=== PATIENT | female | born 1975 | race Caucasian/White ===

== ENCOUNTER 2016-12-09 16:26 | Emergency (ER) | payer SELFPAY ==
[2016-12-09 16:49] VITALS: TEMP 97
--- NOTE | 2016-12-09 16:53 | ED.PDOC ---
History of Present Illness - General Chief Complaint: GI Problem Stated Complaint: NAUSEA X3 WEEKS Time Seen by Provider: 12/09/16 16:36 Information Source: patient, RN notes reviewed, Vital Signs reviewed Exam Limitations: no limitations - History of Present Illness Initial Comments: Patient comes in with c/o nausea for 3 weeks. She has taken Zofran, Pepto, Zantac without improvement. No abdominal pain. She had a bowel movement of 10/3 which was hard so she has been taking Miralax for the past 3 days but has not had a bowel movement since. Abdominal Pain Onset Location: other - No pain Timing/Duration: constant - X 3 weeks Improving Factors: nothing Worsening Factors: nothing Associated Symptoms: nausea/vomiting Review of Systems - Review of Systems Constitutional: States: no symptoms reported Respiratory: States: no symptoms reported Cardiology: States: no symptoms reported, other - She does have hx of an irregular heart rhythm - has biventricular ICD in place. Denies: chest pain Gastrointestinal/Abdominal: States: see HPI, constipation, nausea. Denies: abdominal pain, diarrhea, vomiting Genitourinary: States: no symptoms reported - Denies possibility of - had Tubal Musculoskeletal: States: no symptoms reported Skin: States: no symptoms reported All other Systems: No Change from Baseline Family Medical History - Family History Mother Family History: Unknown Physical Exam - Physical Exam General Appearance: Alert, Comfortable, No apparent distress, Well Developed, Well Groomed, Well Hydrated, Well Nourished Neck: supple, normal inspection Respiratory: lungs clear, normal breath sounds, no respiratory distress, no accessory muscle use Cardiovascular/Chest: regular rate, rhythm, no gallop, no murmur Gastrointestinal/Abdominal: normal bowel sounds, non tender, soft, no organomegaly, no pulsatile mass Extremity: normal range of motion, normal inspection Neurologic: alert, normal mood/affect, oriented x 3 Skin Exam: normal color, warm/dry Progress - Progress Progress: 12/09/16 18:20 Will give NS bolus and Lactulose for constipation. 12/09/16 20:14 No response after 2L NS bolus and 2 doses of Lactulose 30ml PO. Will now attempt a soap suds enema. 12/09/16 21:33 Patient has had 3 bowel movements. The first was hard but is becoming softer. no further nausea. 12/09/16 21:45 She is continuing to have bowel movements. Feeling much better. Would like to go home - Results/Orders Results/Orders: Laboratory Tests 12/09/16 12/09/16 12/09/16 16:58 16:58 16:58 WBC 4.9 RBC 4.28 Hgb 12.6 Hct 37.2 MCV 87.1 MCH 29.5 MCHC 33.9 RDW 14.8 H Plt Count 199 MPV 9.7 Absolute Neuts (auto) 3.10 Absolute Lymphs (auto) 1.20 Absolute Monos (auto) 0.50 Absolute Eos (auto) 0.00 Absolute Basos (auto) 0.00 Neutrophils % 64.2 Lymphocytes % 24.5 Monocytes % 11.0 H Eosinophils % 0.0 L Basophils % 0.3 Sodium 135 Potassium 4.0 Chloride 103 Carbon Dioxide 26 Anion Gap 10.0 L BUN 8 Creatinine 0.64 BUN/Creatinine Ratio 12.5 Random Glucose 113 H Serum Osmolality 269.2 L Calcium 8.5 Total Bilirubin 0.8 AST 27 ALT 20 Alkaline Phosphatase 50 Serum Total Protein 7.4 Albumin 3.8 Globulin 3.6 H Albumin/Globulin Ratio 1.1 Amylase 43 Lipase 23 Urine Color Urine Appearance Urine pH Ur Specific [place] Urine Protein Urine Glucose (UA) Urine Ketones Urine Blood Urine Nitrite Urine Bilirubin Urine Urobilinogen Ur Leukocyte Esterase Urine RBC Urine WBC Ur Epithelial Cells Urine Bacteria Urine HCG, Qual Negative 12/09/16 16:58 WBC RBC Hgb Hct MCV MCH MCHC RDW Plt Count MPV Absolute Neuts (auto) Absolute Lymphs (auto) Absolute Monos (auto) Absolute Eos (auto) Absolute Basos (auto) Neutrophils % Lymphocytes % Monocytes % Eosinophils % Basophils % Sodium Potassium Chloride Carbon Dioxide Anion Gap BUN Creatinine BUN/Creatinine Ratio Random Glucose Serum Osmolality Calcium Total Bilirubin AST ALT Alkaline Phosphatase Serum Total Protein Albumin Globulin Albumin/Globulin Ratio Amylase Lipase Urine Color Yellow Urine Appearance Clear Urine pH 6.5 Ur Specific [place] 1.025 Urine Protein Negative Urine Glucose (UA) Negative Urine Ketones Negative Urine Blood Negative Urine Nitrite Negative Urine Bilirubin Negative Urine Urobilinogen 0.2 Ur Leukocyte Esterase Negative Urine RBC 0 Urine WBC 0 Ur Epithelial Cells 1-3 Urine Bacteria 0 Urine HCG, Qual - EKG/XRAY/CT Comments: Electronic ventricular pacemaker XRAY: abdomen - Stool throughout the colon, no acute process per Radiologist Departure - Departure Clinical Impression: Nausea alone Constipation Qualifiers: Constipation type: slow transit constipation Qualified Code(s): K59.01 - Slow transit constipation Time of Disposition: 21:46 Disposition: Discharge to Home or Self Care Condition: Fair Departure Forms: ED Discharge - Pt. Copy, Patient Portal Self Enrollment Instructions: DI for Constipation Diet: resume usual diet Activity: increase activity as tolerated Home Medications: Ambulatory Orders Carvedilol [Coreg] 3.125 mg PO BID 12/09/16 Lisinopril 20 mg PO DAILY 12/09/16 amLODIPine BESYLATE [Norvasc] 5 mg PO BEDTIME 12/09/16
--- NOTE | 2016-12-09 17:21 | RAD ---
Examination: XR ABDOMEN 2 VIEWS SUPINE ERECT dated 12/09/2016 4:46 PM CDT History: nausea/constipation Comparison: None Technique: Frontal views of the chest, abdomen, and pelvis. FINDINGS: The lungs are clear. No pneumothorax or pleural effusion. Elevated right hemidiaphragm. Left cardiac AICD. Cardiac silhouette is within normal limits. No free air. Stool seen throughout the colon with a general paucity of bowel gas elsewhere. A small calcification projects over the right lower pelvis and may be a phlebolith or a bladder stone. Otherwise no suspicious calcifications. IMPRESSION: Small phlebolith or bladder stone within the right hemipelvis. Otherwise no acute findings. Electronically signed by: Tyrell Ortiz MD 12/09/2016 5:20 PM CDT
[2016-12-09] MEDS ORDERED: LACTULOSE SYRUP 20 GM/30 ML UD PO ONE ×2 (17:26→19:05)
[2016-12-09] MEDS ORDERED: SODIUM CHLORIDE 0.9% 1000ML 1,000 ML IVS ONE ×2 (17:26→19:05)
[2016-12-09] MEDS ORDERED: LACTULOSE SYRUP 20 GM/30 ML UD ONE (19:04)
[2016-12-09 19:05] VITALS: O2SAT 99
[2016-12-09 21:24] VITALS: BP 157/101
== END 2016-12-09 21:59 | disposition home or self-care (01) ==
LOC: ER 16:26
DX: K59.01 Slow transit constipation (principal); R11.0 Nausea; Z95.0 Presence of cardiac pacemaker
CPT/HCPCS: 36415; 74020; 80053; 81001; 81025; 82150; 83690; 85025; 93005; J7030

== ENCOUNTER 2017-01-05 15:34 | Emergency (ER) | payer SELFPAY ==
[2017-01-05 15:53] VITALS: TEMP 97.6; O2SAT 100
[2017-01-05] MEDS ORDERED: ASPIRIN (CHEWABLE) 81 MG TAB PO ONE (15:53)
--- NOTE | 2017-01-05 15:56 | ED.PDOC ---
History of Present Illness - General Chief Complaint: Chest Pain/NV Stated Complaint: chest pain ,sob Time Seen by Provider: 01/05/17 15:40 Source: patient, RN notes reviewed, Vital Signs reviewed Exam Limitations: no limitations - History of Present Illness Initial Comments: Patient comes in with c/o chest pain and SOB that started around 08:00 this morning. Reports she normally has SOB in the morning that usually resolves but it has not today and the chest pain is new. The pain is substernal and varies from an ache to heaviness but never goes away. + mild nausea. Radiated to R jaw and R arm. She use to have chest pain prior to her getting her biventricular ICD pacemaker. Her L lead is fractured but she saw her EP doctor in December and not going to fix it at this time. Timing/Duration: 7-24 hours Severity/Quality: mild, aching, other - Heavy Location: substernal Chest Pain Radiation: jaw - Right, arms - Right Activities at Onset: other - Had just gotten up Prior Chest Pain/Cardiac Workup: echocardiography - last month - EF 55%, other - Biventricular ICD pacemaker Improving Factors: nothing Worsening Factors: nothing Nitro Today/Relief: 0.4 mg x 1, provided by ED Aspirin Treatment Today: 81 mg x 4, provided by ED Associated Symptoms: nausea/vomiting Allergies/Adverse Reactions: Allergies Beta Adrenergic Blockers Allergy (Verified 01/05/17 15:53) Sulfa Antibiotics Allergy (Verified 12/09/16 16:49) Home Medications: Ambulatory Orders Carvedilol [Coreg] 3.125 mg PO BID 12/09/16 Lisinopril 20 mg PO DAILY 12/09/16 amLODIPine BESYLATE [Norvasc] 5 mg PO BEDTIME 12/09/16 Nitroglycerin 0.4 mg Tab [Nitrostat] 1 ea SL Q5MIN PRN #1 bttl 01/05/17 Tramadol HCl [Ultram] 50 mg PO PRN 01/05/17 Review of Systems - Review of Systems Constitutional: States: no symptoms reported Respiratory: States: see HPI, short of breath. Denies: cough Cardiology: States: see HPI, chest pain. Denies: palpitations, syncope Gastrointestinal/Abdominal: States: nausea. Denies: abdominal pain, vomiting Musculoskeletal: States: no symptoms reported Skin: States: no symptoms reported Neurological: States: no symptoms reported All other Systems: No Change from Baseline Past Medical History (General) - Patient Medical History Hx Cardiac Disorders: Yes - Cardiomyopathy Hx Congestive Heart Failure: Yes Hx Pacemaker: Yes - CPVT Hx Hypertension: Yes Surgical History: pacemaker - Vaccination History Hx Influenza Vaccination: No - Social History Hx Tobacco Use: No - Female History Patient is a Female of Child Bearing Age (10 -59 yrs old): Yes Family Medical History - Family History Mother Family History: Unknown Physical Exam - Physical Exam General Appearance: Alert, Comfortable, No apparent distress, Well Developed, Well Groomed, Well Hydrated, Well Nourished Neck: non-tender, full range of motion, supple, normal inspection Respiratory: lungs clear, normal breath sounds, no respiratory distress, no accessory muscle use Cardiovascular/Chest: regular rate, rhythm - with occasional PVC's, no edema, no gallop, no JVD, no murmur Peripheral Pulses: radial,right: 2+, radial,left: 2+, dorsalis pedis,right: 2+, dorsalis pedis,left: 2+ Extremity: non-tender, normal inspection, no pedal edema Neurologic: alert, normal mood/affect, oriented x 3 Skin Exam: normal color, warm/dry Comments: Vital Signs 01/05/17 15:48 Temperature 97.6 F Pulse Rate [ 80 Left Brachial] Respiratory 20 Rate Blood Pressure 183/101 [Left Arm] O2 Sat by Pulse 100 Oximetry Progress - Progress Progress: 01/05/17 16:18 CP started @ 6/10, after 1st SLNTG pain is 4/10 & BP improved ~ 149/102. Will give a second SLNTG 01/05/17 16:43 Chest pain resolved after 2nd SLNTG. BP 151/102. Gave Tylenol 1gm PO for PATINO 01/05/17 19:47 Patient has remained pain free. 2 sets of cardiac enzymes are normal. 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 - Results/Orders Results/Orders: Laboratory Tests 01/05/17 01/05/17 01/05/17 16:16 16:16 16:16 WBC 4.3 L RBC 4.06 L Hgb 11.7 L Hct 35.1 L MCV 86.6 MCH 28.8 MCHC 33.3 RDW 13.6 Plt Count 188 MPV 9.7 Absolute Neuts (auto) 2.80 Absolute Lymphs (auto) 1.00 Absolute Monos (auto) 0.40 Absolute Eos (auto) 0.00 Absolute Basos (auto) 0.00 Neutrophils % 65.8 Lymphocytes % 23.6 Monocytes % 10.2 H Eosinophils % 0.1 L Basophils % 0.3 D-Dimer, Quantitative < 230 Sodium 134 L Potassium 3.6 Chloride 106 Carbon Dioxide 21 Anion Gap 10.6 L BUN 12 Creatinine 0.89 BUN/Creatinine Ratio 13.5 Random Glucose 88 Serum Osmolality 267.4 L Calcium 9.1 Total Bilirubin 0.5 AST 27 ALT 16 Alkaline Phosphatase 47 Creatine Kinase 62 CK-MB (CK-2) 1.6 CK-MB (CK-2) % Not Reportable Troponin I < 0.02 Serum Total Protein 7.2 Albumin 3.9 Globulin 3.3 Albumin/Globulin Ratio 1.2 01/05/17 19:15 WBC RBC Hgb Hct MCV MCH MCHC RDW Plt Count MPV Absolute Neuts (auto) Absolute Lymphs (auto) Absolute Monos (auto) Absolute Eos (auto) Absolute Basos (auto) Neutrophils % Lymphocytes % Monocytes % Eosinophils % Basophils % D-Dimer, Quantitative Sodium Potassium Chloride Carbon Dioxide Anion Gap BUN Creatinine BUN/Creatinine Ratio Random Glucose Serum Osmolality Calcium Total Bilirubin AST ALT Alkaline Phosphatase Creatine Kinase 52 CK-MB (CK-2) 1.4 CK-MB (CK-2) % Not Reportable Troponin I < 0.02 Serum Total Protein Albumin Globulin Albumin/Globulin Ratio - EKG/XRAY/CT EKG: Unchanged from - 12/09/16 Comments: Electronically paced with frequent PVC's XRAY: chest - No acute findings per Radiologist Departure - Departure Clinical Impression: Shortness of breath Chest pain Qualifiers: Chest pain type: unspecified Qualified Code(s): R07.9 - Chest pain, unspecified Time of Disposition: 19:48 Disposition: Discharge to Home or Self Care Condition: Good Departure Forms: ED Discharge - Pt. Copy, Patient Portal Self Enrollment Instructions: DI for Chest Pain Diet: resume usual diet Activity: increase activity as tolerated Prescriptions: Nitroglycerin 0.4 mg Tab [Nitrostat] 1 ea SL Q5MIN PRN #1 bttl PRN Reason: Chest Pain Home Medications: Ambulatory Orders Carvedilol [Coreg] 3.125 mg PO BID 12/09/16 Lisinopril 20 mg PO DAILY 12/09/16 amLODIPine BESYLATE [Norvasc] 5 mg PO BEDTIME 12/09/16 Nitroglycerin 0.4 mg Tab [Nitrostat] 1 ea SL Q5MIN PRN #1 bttl 01/05/17 Tramadol HCl [Ultram] 50 mg PO PRN 01/05/17
[2017-01-05] MEDS: NITROGLYCERIN 0.4 MG 25 EA TAB SL ONE ×2 (15:58→16:18)
[2017-01-05] MEDS ORDERED: ACETAMINOPHEN 500 MG TAB PO ONE (16:33)
--- NOTE | 2017-01-05 16:34 | RAD ---
EXAM DESCRIPTION: Chest,1 View CLINICAL HISTORY: Chest pain FINDINGS/ IMPRESSION: Cardiac defibrillator/ pacemaker. No fracture of the leads. Heart size normal. Mildly tortuous aorta. No pulmonary edema, infiltrate or effusion. Calcified granuloma in the right lung No pneumothorax. No acute bony abnormality identified Electronically signed by: Filiberto Fair MD 01/05/2017 4:32 PM CDT
[2017-01-05 20:33] VITALS: BP 164/94
== END 2017-01-05 20:35 | disposition home or self-care (01) ==
LOC: ER 15:34
DX: R06.02 Shortness of breath (principal); R07.9 Chest pain, unspecified; I11.0 Hypertensive heart disease with heart failure; I50.9 Heart failure, unspecified; Z95.0 Presence of cardiac pacemaker; Z88.2 Allergy status to sulfonamides; Z88.8 Allergy status to other drugs, medicaments and biological substances; Z79.899 Other long term (current) drug therapy

== ENCOUNTER 2018-11-08 15:17 | Emergency (ER) | payer SELFPAY ==
[2018-11-08] MEDS ORDERED: SODIUM CHLORIDE 0.9% (FLUSH) 10 ML SYG IV PRN (15:44)
[2018-11-08 15:53] VITALS: O2SAT 100
--- NOTE | 2018-11-08 16:14 | ED.PDOC ---
History of Present Illness - General Chief Complaint: Back Pain or Injury Stated Complaint: R lower back pain Time Seen by Provider: 11/08/18 15:44 - History of Present Illness Initial Comments: 43 yo female who presents with cc of right lower back pain. Reports onset about 1 month ago after straining her back doing some yard work. Was Rx'd NSAIDs and muscle relaxers with decent improvement until 3-4 days ago. Reports constant throbbing/dull pain to right lower back which radiates around to RLQ and down anterior right thigh, occasionally briefly becomes sharp and severe, worse with movement/walking/bending, mild relief at rest, no improvement with OTC meds. Denies weakness, numbness, urinary sx's, fevers. Allergies/Adverse Reactions: Allergies Beta Adrenergic Blockers Allergy (Verified 11/08/18 15:41) Pt states that it causes mild wheezing but takes it for her condition. Protective Adhesive Powder Allergy (Verified 11/08/18 15:40) Sulfa Antibiotics Allergy (Verified 11/08/18 15:40) Home Medications: Ambulatory Orders Carvedilol [Coreg] 3.125 mg PO BID 12/09/16 Lisinopril 20 mg PO DAILY 12/09/16 amLODIPine BESYLATE [Norvasc] 5 mg PO BEDTIME 12/09/16 Nitroglycerin 0.4 mg Tab [Nitrostat] 1 ea SL Q5MIN PRN #1 bttl 01/05/17 Tramadol HCl [Ultram] 50 mg PO PRN 01/05/17 Acetaminophen W/ Codeine [Tylenol W/ CODEINE #3] 1 ea PO Q6HR PRN #20 11/08/18 Cyclobenzaprine HCl [Flexeril] 10 mg PO Q8HR PRN #30 tab 11/08/18 Prednisone 40 mg PO BID 5 Days tab 11/08/18 Review of Systems - Review of Systems Review of Systems: 11/08/18 18:49 see HPI All other Systems: Reviewed and Negative Past Medical History (General) - Patient Medical History Hx Stroke: No Hx of COPD: No Hx Cardiac Disorders: Yes - CPVT, Hx Congestive Heart Failure: Yes Hx Pacemaker: Yes - Biventricular ICV Hx Hypertension: Yes Hx Diabetes: No Hx Cancer: No Surgical History: pacemaker, other - Vaccination History Hx Tetanus, Diphtheria Vaccination: No Hx Influenza Vaccination: No Hx Pneumococcal Vaccination: No - Social History Hx Tobacco Use: No Hx Alcohol Use: Yes - Occasional Hx Substance Use: No Hx Substance Use Treatment: No Hx Depression: No - Female History Patient is a Female of Child Bearing Age (10 -59 yrs old): Yes Patient : No - Denies Family Medical History - Family History Mother Family History: Unknown Living Status: Still Living Maternal Grandparents Living Status: Hx Family Cancer: Yes - Uterine Physical Exam - Physical Exam General Appearance: Alert, No apparent distress Eye Exam: bilateral normal Ears, Nose, Throat: hearing grossly normal, normal pharynx Neck: non-tender, full range of motion, supple Respiratory: lungs clear, normal breath sounds, no respiratory distress Cardiovascular/Chest: normal peripheral pulses, regular rate, rhythm, no edema Gastrointestinal/Abdominal: non tender, soft Back Exam: normal inspection, no CVA tenderness, no vertebral tenderness, muscle spasm - mild right lower back muscle spasms and ttp, moderate decreased ROM L- spine Extremity: normal range of motion, non-tender, normal inspection, normal capilla ry refill Neurologic: no motor/sensory deficits, alert, normal mood/affect, oriented x 3 Skin Exam: normal color, warm/dry Progress - Progress Progress: 11/08/18 18:50 Acute low back pain -suspect strain most likely. Considered also back frx vs UTI vs kidney stone vs arthropathy vs other -Labs and XR L-spine largely unremarkable. Seems c/w strain of low back. Discussed treatment with course of antiinflammatories, prednisone x5 days, muscle relaxers PRN, and Tylenol #3 PRN breakthrough pain as Tramadol not working per patient -f/u with PCP next week for further eval, may need PT referral 11/08/18 15:44 Sodium Chloride 0.9% (Flush) [Saline Flush Syringe] 10 ml IV PRN PRN 11/08/18 15:45 EKG STAT Laboratory Results - last 24 hr 11/08/18 11/08/18 11/08/18 15:22 15:44 15:44 WBC 4.4 L RBC 4.40 Hgb 13.2 Hct 39.1 MCV 89.0 MCH 30.0 MCHC 33.8 RDW 13.8 Plt Count 161 MPV 10.5 H Absolute Neuts (auto) 2.30 Absolute Lymphs (auto) 1.50 Absolute Monos (auto) 0.60 Absolute Eos (auto) 0.00 Absolute Basos (auto) 0.00 Neutrophils % 51.3 Lymphocytes % 35.0 Monocytes % 12.9 H Eosinophils % 0.1 L Basophils % 0.7 Sodium 137 Potassium 3.9 Chloride 106 Carbon Dioxide 23 Anion Gap 11.9 L BUN 13 Creatinine 0.82 BUN/Creatinine Ratio 15.9 Random Glucose 101 Serum Osmolality 274.1 L Calcium 8.5 Total Bilirubin Direct Bilirubin Indirect Bilirubin AST ALT Alkaline Phosphatase Serum Total Protein Albumin Lipase Urine Color Yellow Urine Appearance Clear Urine pH 6.5 Ur Specific [place] 1.015 Urine Protein Negative Urine Glucose (UA) Negative Urine Ketones Negative Urine Blood Small H Urine Nitrite Negative Urine Bilirubin Negative Urine Urobilinogen 0.2 Ur Leukocyte Esterase Negative Urine RBC 0-1 Urine WBC 0 Ur Epithelial Cells 0-1 Urine Bacteria Rare Urine HCG, Qual 11/08/18 11/08/18 15:45 15:45 WBC RBC Hgb Hct MCV MCH MCHC RDW Plt Count MPV Absolute Neuts (auto) Absolute Lymphs (auto) Absolute Monos (auto) Absolute Eos (auto) Absolute Basos (auto) Neutrophils % Lymphocytes % Monocytes % Eosinophils % Basophils % Sodium Potassium Chloride Carbon Dioxide Anion Gap BUN Creatinine BUN/Creatinine Ratio Random Glucose Serum Osmolality Calcium Total Bilirubin 0.5 Direct Bilirubin < 0.1 Indirect Bilirubin 0.4 AST 37 ALT 28 Alkaline Phosphatase 47 Serum Total Protein 7.1 Albumin 4.1 Lipase 28 Urine Color Urine Appearance Urine pH Ur Specific [place] Urine Protein Urine Glucose (UA) Urine Ketones Urine Blood Urine Nitrite Urine Bilirubin Urine Urobilinogen Ur Leukocyte Esterase Urine RBC Urine WBC Ur Epithelial Cells Urine Bacteria Urine HCG, Qual Negative 11/08/18 18:52 - EKG/XRAY/CT EKG: LBBB - HR 80, appears unchanged from 01/05/17 EKG, no ST T wave changes Departure - Departure Clinical Impression: Low back strain Time of Disposition: 18:42 Disposition: Discharge to Home or Self Care Condition: Good Departure Forms: ED Discharge - Pt. Copy, Patient Portal Self Enrollment Instructions: DI for Back Strain or Sprain, Active Range of Motion Exercises, Back and Hips Referrals: Monisha Byers, AUTOMOBI[employer] WORKER [Primary Care Provider] - 1-2 Weeks Prescriptions: Acetaminophen W/ Codeine [Tylenol W/ CODEINE #3] 1 ea PO Q6HR PRN #20 PRN Reason: Pain Cyclobenzaprine HCl [Flexeril] 10 mg PO Q8HR PRN #30 tab PRN Reason: Muscle Spasms Prednisone 40 mg PO BID 5 Days tab Home Medications: Ambulatory Orders Carvedilol [Coreg] 3.125 mg PO BID 12/09/16 Lisinopril 20 mg PO DAILY 12/09/16 amLODIPine BESYLATE [Norvasc] 5 mg PO BEDTIME 12/09/16 Nitroglycerin 0.4 mg Tab [Nitrostat] 1 ea SL Q5MIN PRN #1 bttl 01/05/17 Tramadol HCl [Ultram] 50 mg PO PRN 01/05/17 Acetaminophen W/ Codeine [Tylenol W/ CODEINE #3] 1 ea PO Q6HR PRN #20 11/08/18 Cyclobenzaprine HCl [Flexeril] 10 mg PO Q8HR PRN #30 tab 11/08/18 Prednisone 40 mg PO BID 5 Days tab 11/08/18
--- NOTE | 2018-11-08 17:31 | RAD ---
EXAM: XR Lumbar Spine, 2 or 3 Views CLINICAL HISTORY: low back pain TECHNIQUE: Frontal and lateral views of the lumbar spine. COMPARISON: No relevant prior studies available. FINDINGS: Limitations: None. Vertebrae: Question six nonrib-bearing lumbar vertebra with the most cranial not completely imaged. Visualized vertebral bodies are normally developed and aligned. No acute fracture. Disc spaces: No significant abnormality noted. No significant narrowing. Soft tissues: Unremarkable. IMPRESSION: No acute findings. Electronically signed by: Sarina Harrison MD 11/08/2018 5:30 PM CDT
[2018-11-08] MEDS ORDERED: DEXAMETHASONE INJ 4 MG/ML VIAL IV ONE (18:01)
[2018-11-08] MEDS ORDERED: HYDROcodone 10MG/APAP 325MG 1 EA TAB PO ONE (18:01)
[2018-11-08] MEDS ORDERED: KETOROLAC TROMETHAMINE INJ 30 MG/ML VIAL IV ONE (18:01)
[2018-11-08 19:08] VITALS: BP 145/97; TEMP 97.8
== END 2018-11-08 19:08 | disposition home or self-care (01) ==
LOC: ER 15:17
DX: S39.012A Strain of muscle, fascia and tendon of lower back, initial encounter (principal); I44.7 Left bundle-branch block, unspecified; I10 Essential (primary) hypertension; Z95.0 Presence of cardiac pacemaker; Z79.899 Other long term (current) drug therapy; Z88.8 Allergy status to other drugs, medicaments and biological substances; Z88.2 Allergy status to sulfonamides; X58.XXXA Exposure to other specified factors, initial encounter; Y93.H2 Activity, gardening and landscaping; Y92.9 Unspecified place or not applicable
CPT/HCPCS: 72100; 80048; 80076; 81001; 81025; 83690; 85025; 93005; J1100; J1885